=== PATIENT | female | born 1985 | race Caucasian/White ===

== ENCOUNTER 2017-02-18 18:23 | Emergency (ER) | payer MEDICAID ==
[~2017-02-18] VITALS: Ht 162.6 cm; Wt 91.2 kg
[~2017-02-18 18:23] MED LIST: ACETAMINOPHEN/H1 TA6 PO; FLO4 PO; PYR100 PO
[2017-02-18 20:22] VITALS: BP 122/78
== END 2017-02-18 20:22 | disposition home or self-care (01) ==
LOC: ED 18:23
DX: N83.9 Noninflammatory disorder of ovary, fallopian tube and broad ligament, unspecified (principal)

== ENCOUNTER 2017-07-25 12:00 | Emergency (ER) | payer MEDICAID ==
[~2017-07-25] VITALS: Ht 170.2 cm; Wt 91.2 kg
[2017-07-25 12:35] LABS: BASOPHIL % 0.2 % (0-2); PLATELET COUNT 200 x10^3mcL (130-400); RED CELL DISTRIBUTION WIDTH 13.4 % (11.5-14.5)
[2017-07-25 12:41] LABS: CALCIUM 9.1 mg/dL (8.5-10.1); CARBON DIOXIDE 27.5 mmol/L (21-32); CHLORIDE SERUM 105 mmol/L (98-107); GFR1 > 60 mL/min; GLUCOSE SERUM 94 mg/dL (74-106); POTASSIUM SERUM 4.6 mmol/L (3.5-5.1); SODIUM SERUM 140 mmol/L (136-145)
[2017-07-25 12:47] LABS: ALBUMIN 3.8 g/dL (3.4-5.0); ALKALINE PHOSPHATASE 86 U/L (46-116); ALT/SGPT 26 U/L (14-59); AST/SGOT 20 U/L (15-37); BILIRUBIN TOTAL 0.5 mg/dL (0.20-1.00); LIPASE 175 IU/L (73-393); TOTAL PROTEIN, SERUM 7.9 g/dL (6.4-8.2)
[2017-07-25 15:52] VITALS: BP 125/72
== END 2017-07-25 15:52 | disposition home or self-care (01) ==
LOC: ED 12:00
PROVIDERS: Emergency Medicine
DX: N20.0 Calculus of kidney (principal); Z88.8 Allergy status to other drugs, medicaments and biological substances
CPT/HCPCS: J1885; J2270; J7030

== ENCOUNTER 2017-11-27 10:58 | Emergency (ER) | payer MEDICAID ==
[~2017-11-27] VITALS: Ht 162.6 cm; Wt 91.6 kg
[2017-11-27 11:03] VITALS: Ht 162.6 cm; Wt 91.6 kg
[2017-11-27 12:51] VITALS: BP 112/69
== END 2017-11-27 12:52 | disposition home or self-care (01) ==
LOC: ED 10:58
DX: J02.9 Acute pharyngitis, unspecified (principal); Z88.1 Allergy status to other antibiotic agents; Z88.2 Allergy status to sulfonamides
CPT/HCPCS: J1885; Q0092

== ENCOUNTER 2018-02-13 21:39 | Emergency (ER) | payer MEDICAID ==
[~2018-02-13] VITALS: Ht 162.6 cm; Wt 91.6 kg
[2018-02-13 22:39] LABS: BASOPHIL % 0.5 % (0-2); PLATELET COUNT 160 x10^3mcL (130-400); RED CELL DISTRIBUTION WIDTH 13.9 % (11.5-14.5)
[2018-02-13 22:47] LABS: CALCIUM 8.9 mg/dL (8.5-10.1); CARBON DIOXIDE 25.7 mmol/L (21-32); CHLORIDE SERUM 105 mmol/L (98-107); CREATININE SERUM 0.8 mg/dL (0.6-1.0); GFR1 > 60 mL/min; GLUCOSE SERUM 101 mg/dL (74-106); POTASSIUM SERUM 3.9 mmol/L (3.5-5.1); SODIUM SERUM 137 mmol/L (136-145)
[2018-02-13 22:52] LABS: ALBUMIN 3.4 g/dL (3.4-5.0); ALKALINE PHOSPHATASE 84 U/L (46-116); ALT/SGPT 24 U/L (14-59); AST/SGOT 19 U/L (15-37); TOTAL PROTEIN, SERUM 6.8 g/dL (6.4-8.2)
[2018-02-14 00:27] VITALS: BP 141/87
[2018-02-14 00:54] LABS: UA SPECIFIC GRAVITY 1.025 (1.005-1.035); microscopic required? YES; urine erythrocyte 3+ (NEGATIVE)
[2018-02-14] MEDS ORDERED: KEFLEX500 M1 PO (18:01)
[2018-02-14] MEDS ORDERED: NITROFURANTOIN100 M3 PO (18:01)
== END 2018-02-14 00:27 | disposition home or self-care (01) ==
LOC: ED 21:39
PROVIDERS: Emergency Medicine
DX: N23 Unspecified renal colic (principal); Z88.2 Allergy status to sulfonamides; Z88.1 Allergy status to other antibiotic agents
CPT/HCPCS: J1885; J2405; J3010; J7030

== ENCOUNTER 2018-02-14 16:27 | Inpatient (IN) | payer OTHER ==
[~2018-02-14] VITALS: Ht 162.6 cm; Wt 98.0 kg
[2018-02-14] MEDS ORDERED: KEFLEX500 M1 PO (18:01)
[2018-02-14] MEDS ORDERED: NITROFURANTOIN100 M3 PO (18:01)
[2018-02-14 18:02] LABS: CALCIUM 8.4 mg/dL (8.5-10.1); CARBON DIOXIDE 24.8 mmol/L (21-32); CREATININE SERUM 1.4 mg/dL (0.6-1.0); POTASSIUM SERUM 3.9 mmol/L (3.5-5.1)
[2018-02-14 18:10] LABS: ALBUMIN 3.5 g/dL (3.4-5.0); BILIRUBIN TOTAL 0.5 mg/dL (0.20-1.00); TOTAL PROTEIN, SERUM 6.8 g/dL (6.4-8.2)
[2018-02-14 18:13] LABS: BASOPHIL % 0.3 % (0-2); PLATELET COUNT 130 x10^3mcL (130-400)
[2018-02-14 18:53] VITALS: BP 141/75
[2018-02-14 18:54] VITALS: Ht 162.6 cm; Wt 98.0 kg
[2018-02-14 20:38] VITALS: BP 115/70
[2018-02-15 05:32] VITALS: BP 103/51
[2018-02-15 06:05] LABS: BASOPHIL % 0.1 % (0-2)
[2018-02-15 06:14] LABS: CALCIUM 8.3 mg/dL (8.5-10.1); CARBON DIOXIDE 25.8 mmol/L (21-32); CHLORIDE SERUM 109 mmol/L (98-107); CREATININE SERUM 0.8 mg/dL (0.6-1.0); GFR1 > 60 mL/min; GLUCOSE SERUM 91 mg/dL (74-106); POTASSIUM SERUM 4.4 mmol/L (3.5-5.1); SODIUM SERUM 140 mmol/L (136-145)
[2018-02-15 06:20] LABS: PLATELET COUNT 124 x10^3mcL (130-400)
[2018-02-15 09:47] VITALS: BP 116/57
[2018-02-15 16:50] VITALS: BP 119/58
[2018-02-15 21:15] VITALS: BP 118/65
== END 2018-02-15 23:13 | disposition home or self-care (01) | DRG 469 ==
LOC: ED 16:27 → MU 17:45
PROVIDERS: Emergency Medicine; Internal Medicine Pulmonary Disease
DX: N17.9 Acute kidney failure, unspecified (principal); N10 Acute pyelonephritis; N13.9 Obstructive and reflux uropathy, unspecified; N13.2 Hydronephrosis with renal and ureteral calculous obstruction; K21.9 Gastro-esophageal reflux disease without esophagitis; E66.9 Obesity, unspecified; Z88.8 Allergy status to other drugs, medicaments and biological substances; Z88.1 Allergy status to other antibiotic agents; Z90.49 Acquired absence of other specified parts of digestive tract
CPT/HCPCS: J0696; J1650; J2270; J2405; J3010; J7030; Q0092

== ENCOUNTER 2018-03-31 17:49 | Emergency (ER) | payer OTHER ==
[~2018-03-31] VITALS: Ht 162.6 cm; Wt 90.8 kg
[~2018-03-31 17:49] MED LIST changes: +KEFLEX500 M1 PO; +NITROFURANTOIN100 M3 PO
[2018-03-31 17:53] VITALS: Ht 162.6 cm; Wt 90.8 kg
[2018-03-31 19:47] LABS: BASOPHIL % 0.3 % (0-2); PLATELET COUNT 190 x10^3mcL (130-400); RED CELL DISTRIBUTION WIDTH 13.4 % (11.5-14.5)
[2018-03-31 19:56] LABS: CALCIUM 8.9 mg/dL (8.5-10.1); CARBON DIOXIDE 30.4 mmol/L (21-32); CHLORIDE SERUM 105 mmol/L (98-107); CREATININE SERUM 0.7 mg/dL (0.6-1.0); GFR1 > 60 mL/min; GLUCOSE SERUM 85 mg/dL (74-106); SODIUM SERUM 143 mmol/L (136-145)
[2018-03-31 20:00] LABS: ALBUMIN 3.7 g/dL (3.4-5.0); ALKALINE PHOSPHATASE 100 U/L (46-116); ALT/SGPT 28 U/L (14-59); AMYLASE 77 U/L (25-115); AST/SGOT 19 U/L (15-37); BILIRUBIN TOTAL 0.3 mg/dL (0.20-1.00); LIPASE 154 IU/L (73-393); TOTAL PROTEIN, SERUM 7.5 g/dL (6.4-8.2)
[2018-03-31 20:40] LABS: AMPHETAMINE QUAL UR NONE DETECTED (NEG <=1000)
[2018-03-31 23:48] VITALS: BP 126/78
== END 2018-03-31 23:49 | disposition home or self-care (01) ==
LOC: ED 17:49
PROVIDERS: Emergency Medicine
DX: R07.89 Other chest pain (principal); M79.1 Myalgia; Z88.1 Allergy status to other antibiotic agents; Z88.8 Allergy status to other drugs, medicaments and biological substances
CPT/HCPCS: 36415; G0480

== ENCOUNTER 2018-06-15 08:29 | Emergency (ER) | payer OTHER ==
[~2018-06-15] VITALS: Ht 170.2 cm; Wt 93.0 kg
[2018-06-15 08:35] VITALS: Ht 170.2 cm; Wt 93.0 kg
[2018-06-15 09:13] LABS: microscopic required? NO
[2018-06-15 09:42] LABS: UA SPECIFIC GRAVITY 1.025 (1.005-1.035); urine erythrocyte NEGATIVE (NEGATIVE)
[2018-06-15 10:38] VITALS: BP 130/84
== END 2018-06-15 10:38 | disposition home or self-care (01) ==
LOC: ED 08:29
PROVIDERS: Emergency Medicine
DX: R30.0 Dysuria (principal)
CPT/HCPCS: 87491; 87591; J1885; Q0092

== ENCOUNTER 2018-12-02 16:47 | Emergency (ER) | payer OTHER ==
[~2018-12-02] VITALS: Ht 172.7 cm; Wt 91.6 kg
[2018-12-02 17:07] VITALS: Ht 172.7 cm; Wt 91.6 kg
[2018-12-02 21:00] LABS: BASOPHIL % 0.3 % (0-2); PLATELET COUNT 173 x10^3mcL (130-400); RED CELL DISTRIBUTION WIDTH 13.9 % (11.5-14.5)
[2018-12-02 21:16] LABS: CALCIUM 9.6 mg/dL (8.5-10.1); CARBON DIOXIDE 30.2 mmol/L (21-32); CHLORIDE SERUM 102 mmol/L (98-107); CREATININE SERUM 0.8 mg/dL (0.6-1.0); GFR1 > 60 mL/min; GLUCOSE SERUM 82 mg/dL (74-106); POTASSIUM SERUM 3.8 mmol/L (3.5-5.1); SODIUM SERUM 138 mmol/L (136-145)
[2018-12-02 21:20] LABS: ALBUMIN 3.7 g/dL (3.4-5.0); ALKALINE PHOSPHATASE 74 U/L (46-116); ALT/SGPT 29 U/L (14-59); AST/SGOT 20 U/L (15-37); BILIRUBIN TOTAL 0.4 mg/dL (0.20-1.00); CHOLESTEROL 165 mg/dL (<200); CHOLESTEROL/HDL RATIO 3.3; HDL CHOLESTEROL 50 mg/dL (40-60); LIPASE 134 IU/L (73-393); TOTAL PROTEIN, SERUM 7.7 g/dL (6.4-8.2); TRIGLYCERIDES 51 mg/dL (<150)
[2018-12-02 21:27] LABS: FREE T4 0.98 ng/dL (0.76-1.46); FREE THYROXINE INDEX 2.5 ug/dL (1.4-4.5); T4(THYROXINE) 7.7 ug/dL (4.7-13.3)
[2018-12-02 21:56] VITALS: BP 115/76
[2018-12-02 22:13] LABS: T3 TOTAL 1.42 ng/mL
== END 2018-12-02 21:57 | disposition home or self-care (01) ==
LOC: ED 16:47
PROVIDERS: Specialist
DX: R13.10 Dysphagia, unspecified (principal); Z88.2 Allergy status to sulfonamides; Z87.442 Personal history of urinary calculi
CPT/HCPCS: 36415; 83880; 84439

== ENCOUNTER 2019-06-23 19:03 | Emergency (ER) | payer OTHER ==
[~2019-06-23] VITALS: Ht 167.6 cm; Wt 89.8 kg
[2019-06-23 19:31] VITALS: Ht 167.6 cm; Wt 89.8 kg
[2019-06-23 20:40] LABS: microscopic required? NO
[2019-06-23 20:51] LABS: UA SPECIFIC GRAVITY >=1.030 (1.005-1.035); urine erythrocyte NEGATIVE (NEGATIVE)
[2019-06-23 21:51] VITALS: BP 113/80
== END 2019-06-23 21:51 | disposition home or self-care (01) ==
LOC: ED 19:03
PROVIDERS: Emergency Medicine
DX: R10.2 Pelvic and perineal pain (principal); Z98.890 Other specified postprocedural states; Z87.442 Personal history of urinary calculi; Z88.2 Allergy status to sulfonamides; Z88.1 Allergy status to other antibiotic agents
CPT/HCPCS: 87491; 87591; J1885

== ENCOUNTER 2019-10-01 20:24 | Emergency (ER) | payer OTHER ==
[~2019-10-01] VITALS: Ht 162.6 cm; Wt 86.2 kg
[2019-10-01 20:27] VITALS: Ht 162.6 cm; Wt 86.2 kg
[2019-10-01 20:59] LABS: CALCIUM 8.4 mg/dL (8.5-10.1); CARBON DIOXIDE 26.2 mmol/L (21-32); CHLORIDE SERUM 105 mmol/L (98-107); GFR1 > 60 mL/min; GLUCOSE SERUM 143 mg/dL (74-106); POTASSIUM SERUM 3.8 mmol/L (3.5-5.1); SODIUM SERUM 141 mmol/L (136-145)
[2019-10-01 21:01] LABS: BASOPHIL % 0.1 % (0-2); PLATELET COUNT 176 x10^3mcL (130-400); RED CELL DISTRIBUTION WIDTH 14.4 % (11.5-14.5)
[2019-10-01 21:03] LABS: ALBUMIN 3.4 g/dL (3.4-5.0); ALKALINE PHOSPHATASE 82 U/L (46-116); ALT/SGPT 34 U/L (14-59); AST/SGOT 16 U/L (15-37); BILIRUBIN TOTAL 0.13 mg/dL (0.20-1.00); TOTAL PROTEIN, SERUM 7.4 g/dL (6.4-8.2)
[2019-10-01 21:11] LABS: microscopic required? NO
[2019-10-01 21:18] LABS: UA SPECIFIC GRAVITY 1.015 (1.005-1.035); urine erythrocyte NEGATIVE (NEGATIVE)
[2019-10-01 22:35] VITALS: BP 113/44
== END 2019-10-01 22:35 | disposition home or self-care (01) ==
LOC: ED 20:24
PROVIDERS: Emergency Medicine
DX: B34.9 Viral infection, unspecified (principal); J06.9 Acute upper respiratory infection, unspecified; Z88.2 Allergy status to sulfonamides; Z98.890 Other specified postprocedural states
CPT/HCPCS: 85378; 87804; J1885; J7030; Q0092

== ENCOUNTER 2020-01-01 18:35 | Emergency (ER) | payer OTHER ==
[~2020-01-01] VITALS: Ht 165.1 cm; Wt 96.6 kg
[2020-01-01 18:46] VITALS: Ht 165.1 cm; Wt 96.6 kg
[2020-01-01 21:23] LABS: BASOPHIL % 0.2 % (0-2); PLATELET COUNT 176 x10^3mcL (130-400); RED CELL DISTRIBUTION WIDTH 13.9 % (11.5-14.5)
[2020-01-01 21:50] LABS: CALCIUM 8.5 mg/dL (8.5-10.1); CARBON DIOXIDE 29.2 mmol/L (21-32); CHLORIDE SERUM 106 mmol/L (98-107); CREATININE SERUM 0.7 mg/dL (0.6-1.0); GFR1 > 60 mL/min; GLUCOSE SERUM 95 mg/dL (74-106); SODIUM SERUM 139 mmol/L (136-145)
[2020-01-01 21:55] LABS: ALBUMIN 3.6 g/dL (3.4-5.0); ALKALINE PHOSPHATASE 89 U/L (46-116); ALT/SGPT 29 U/L (14-59); AMYLASE 109 U/L (25-115); AST/SGOT 20 U/L (15-37); BILIRUBIN TOTAL 0.2 mg/dL (0.20-1.00); TOTAL PROTEIN, SERUM 7.5 g/dL (6.4-8.2)
[2020-01-01 23:54] VITALS: BP 130/72
== END 2020-01-01 23:50 | disposition home or self-care (01) ==
LOC: ED 18:35
PROVIDERS: Emergency Medicine
DX: B27.90 Infectious mononucleosis, unspecified without complication (principal); Z87.442 Personal history of urinary calculi; Z98.890 Other specified postprocedural states; Z88.1 Allergy status to other antibiotic agents; Z88.2 Allergy status to sulfonamides
CPT/HCPCS: 36415; 86308

== ENCOUNTER 2020-05-13 17:13 | Emergency (ER) | payer OTHER ==
[~2020-05-13] VITALS: Ht 162.6 cm; Wt 87.1 kg
[2020-05-13 17:27] VITALS: BP 120/77; Ht 162.6 cm; Wt 87.1 kg
[2020-05-13 19:38] LABS: UA SPECIFIC GRAVITY 1.025 (1.005-1.035); microscopic required? YES; urine erythrocyte NEGATIVE (NEGATIVE)
== END 2020-05-13 21:24 | disposition home or self-care (01) ==
LOC: ED 17:13
PROVIDERS: Emergency Medicine
DX: R53.1 Weakness (principal); E66.9 Obesity, unspecified; Z68.32 Body mass index [BMI] 32.0-32.9, adult; Z20.828 Contact with and (suspected) exposure to other viral communicable diseases; Z98.890 Other specified postprocedural states; Z87.442 Personal history of urinary calculi; Z88.2 Allergy status to sulfonamides; Z88.1 Allergy status to other antibiotic agents
CPT/HCPCS: Q0092; U0003-CS

== ENCOUNTER 2020-12-24 11:54 | Emergency (ER) | payer OTHER ==
[~2020-12-24] VITALS: Ht 162.6 cm; Wt 91.6 kg
[2020-12-24 11:59] VITALS: Ht 162.6 cm; Wt 91.6 kg
[2020-12-24 12:28] LABS: BASOPHIL % 0.4 % (0.2-1.3); PLATELET COUNT 191 x10^3mcL (179-408); RED CELL DISTRIBUTION WIDTH 13.2 % (12.3-17.7)
[2020-12-24 12:41] LABS: CALCIUM 8.9 mg/dL (8.5-10.1); CREATININE SERUM 1.4 mg/dL (0.6-1.0)
[2020-12-24 12:45] LABS: ALBUMIN 3.6 g/dL (3.4-5.0); BILIRUBIN TOTAL 0.5 mg/dL (0.20-1.00); TOTAL PROTEIN, SERUM 7.3 g/dL (6.4-8.2)
[2020-12-24 14:17] VITALS: BP 129/74
== END 2020-12-24 12:17 | disposition home or self-care (01) ==
LOC: ED 11:54
PROVIDERS: Emergency Medicine
DX: N23 Unspecified renal colic (principal); Z88.2 Allergy status to sulfonamides; Z98.890 Other specified postprocedural states
CPT/HCPCS: J1885; J2405; J7030